=== PATIENT | female | born 1960 | race Caucasian/White ===

== ENCOUNTER → 2017-01-12 | Outpatient (REF) | payer OTHER | LOC: M LAB REF 17:06 | PROVIDERS: ATTEND Internal Medicine | DX: M25.569 Pain in unspecified knee (principal) ==

== ENCOUNTER → 2017-10-20 | Outpatient (REF) | payer OTHER ==
[2017-10-22 14:18] LABS: HPV HYBRID CAPTURE II Negative (Negative)
== END ==
LOC: M LAB REF 17:58
DX: Z12.4 Encounter for screening for malignant neoplasm of cervix (principal)

== ENCOUNTER → 2017-11-19 | Outpatient (REF) | payer OTHER ==
[2017-11-19 18:40] LABS: FERRITIN 67 NG/ML (8-252); IRON (FE) 79 UG/DL (50-170); PERCENT SATURATION 24.6 % (13.2-45.0); TOTAL IRON BINDING CAPACITY 321 UG/DL (250-450)
== END ==
LOC: M LAB REF 17:22
DX: D64.9 Anemia, unspecified (principal)

== ENCOUNTER → 2017-11-26 | Outpatient (REF) | payer OTHER ==
[2017-12-02 14:18] LABS: HPV HYBRID CAPTURE II Negative (Negative)
== END ==
LOC: M LAB REF 09:11
DX: Z12.4 Encounter for screening for malignant neoplasm of cervix (principal)
CPT/HCPCS: G0123

== ENCOUNTER → 2018-01-12 | Outpatient (REF) | payer OTHER ==
[2018-01-13 11:01] LABS: TROPONIN I < 0.02 NG/ML (< 0.10)
== END ==
LOC: M LAB REF 10:31
DX: R94.31 Abnormal electrocardiogram [ECG] [EKG] (principal)
CPT/HCPCS: 84484

== ENCOUNTER → 2018-01-15 | Outpatient (REF) | payer OTHER ==
[2018-01-19 10:17] LABS: ALDOSTERONE 1.5 ng/dL (0.0-30.0)
== END ==
LOC: M LAB REF 16:29
DX: R73.01 Impaired fasting glucose (principal); I10 Essential (primary) hypertension

== ENCOUNTER → 2018-01-21 | Outpatient (REF) | payer OTHER | LOC: M LAB REF 11:55 | DX: I10 Essential (primary) hypertension (principal) ==

== ENCOUNTER 2018-01-22 15:33 | Emergency (ER) | payer BC, OTHER ==
[2018-01-22 16:39] LABS: HEMATOCRIT 45.6 % (36.0-47.0); HEMOGLOBIN 16.1 g/dl (12.0-15.5); MEAN CORPUSCULAR HEMOGLOBIN 30.3 pg (27.0-33.0); MEAN CORPUSCULAR HGB CONC 35.3 g/dl (32.0-36.5); MEAN CORPUSCULAR VOLUME 85.9 fl (80.0-96.0); PLATELET COUNT, AUTOMATED 274 10^3/uL (150-450); RED BLOOD COUNT 5.31 10^6/uL (4.00-5.40)
[2018-01-22 16:41] LABS: ADD MANUAL DIFFER YES; DIFF SLIDE NUMBER 253; POSITIVE DIFF POS FLAG
[2018-01-22 16:51] LABS: ANION GAP 11 MEQ/L (8-16); BLOOD UREA NITROGEN 12 MG/DL (7-18); CALCIUM LEVEL 9.8 MG/DL (8.5-10.1); CARBON DIOXIDE LEVEL 23 MEQ/L (21-32); CHLORIDE LEVEL 105 MEQ/L (98-107); CPK CREATINE PHOSPHOKINASE 109 U/L (26-192); CREATININE FOR GFR 1.18 MG/DL (0.55-1.30); GLOMERULAR FILTRATION RATE 50.3 (>51); GLUCOSE, FASTING 107 MG/DL (70-100); POTASSIUM SERUM 3.8 MEQ/L (3.5-5.1); SODIUM LEVEL 139 MEQ/L (136-145); TROPONIN I < 0.02 NG/ML (< 0.10)
[2018-01-22 17:02] LABS: FREE T4 1.16 NG/DL (0.76-1.46); MB/CK RELATIVE INDEX 1.83 (< OR =4)
[2018-01-22 17:13] LABS: ATYPICAL LYMPH 6 % (0-5); EOSINOPHILS 1 % (0-5); LYMPHOCYTES 31 % (16-52); MONOCYTES 14 % (0-8); NEUTROPHILS 48 % (35-75); PLATELET ESTIMATE NORMAL (NORMAL)
[2018-01-22] MEDS ORDERED: ISOVUE-370 76% 100ML VIAL (Q9967) As Ordered (17:19)
[2018-01-22 23:27] LABS: TROPONIN I < 0.02 NG/ML (< 0.10)
[2018-01-22 23:28] LABS: CK-MB VALUE MASS 1.9 NG/ML (<3.6); CPK CREATINE PHOSPHOKINASE 120 U/L (26-192); MB/CK RELATIVE INDEX 1.58 (< OR =4)
== END 2018-01-23 00:06 | disposition home or self-care (01) ==
LOC: M ED 01-23 00:06
DX: R07.89 Other chest pain (principal); I10 Essential (primary) hypertension; J45.909 Unspecified asthma, uncomplicated; Z88.8 Allergy status to other drugs, medicaments and biological substances
CPT/HCPCS: Q9967

== ENCOUNTER → 2019-01-26 | Outpatient (REF) | payer OTHER | LOC: M LAB REF 13:25 | PROVIDERS: ATTEND Advanced Practice Midwife | DX: R10.30 Lower abdominal pain, unspecified (principal) ==

== ENCOUNTER → 2019-07-28 | Outpatient (REF) | payer OTHER | LOC: M SFHCWAGY 13:18 | PROVIDERS: ATTEND Specialist | DX: Z12.4 Encounter for screening for malignant neoplasm of cervix (principal) | CPT/HCPCS: 87624; G0123 ==

== ENCOUNTER → 2019-08-16 | Outpatient (CLI) | payer BC, OTHER ==
--- NOTE | 2019-08-16 17:04 | REPMRS ---
Patient History The patient states she had a clinical breast exam in 2018. Family history of breast cancer at age 40 in maternal aunt, breast cancer at age 60 in maternal aunt, ovarian cancer at age 60 in mother, unknown cancer at age 83 in father. Took hormonal contraceptives for 10 years. Digital Woman Screen Mammo: August 16, 2019 - Exam #: [id number] Bilateral CC and MLO view(s) were taken. Technologist: Erna Pace, Technologist Prior study comparison: June 30, 2013, bilateral bilat screen digital mammo[facility] June 01, 2012, bilateral bilat screen digital mammo, [facility] at [facility]). January 14, 2011, bilateral screening mammogram, performed at [facility] ([facility]). FINDINGS: The breast tissue is heterogeneously dense. This may lower the sensitivity of mammography. There is a moderate amount of heterogeneously dense fibroglandular tissue which is fairly symmetric. There is no interval development of dominant mass, architectural distortion, or grouped microcalcification typical of malignancy. There has been no change in the appearance of the mammogram from the prior studies. 3-D tomosynthesis shows no additional findings. Assessment: BI-RADS/ACR category 1 mammogram. Negative Mammogram. Recommendation Routine screening mammogram of both breasts in 1 year (for women over age 40). This patient's Lifetime Breast Cancer RIsk is estimated at 11.1 %. This mammogram was interpreted with the aid of an FDA-approved computer-aided dectection system. Electronically Signed By: Jose Barreto MD 08/16/19 0230
== END ==
LOC: M WHC 16:14
PROVIDERS: ATTEND Specialist
DX: Z12.31 Encounter for screening mammogram for malignant neoplasm of breast (principal); Z80.3 Family history of malignant neoplasm of breast; Z80.41 Family history of malignant neoplasm of ovary

== ENCOUNTER → 2020-03-20 | Outpatient (REF) | payer OTHER ==
[2020-04-30 08:29] LABS: ANTINUCLEAR ANTIBODIES DIRECT See Separate Report; CYCLIC CITRULLINATED PEPTIDE See Separate Report UNITS
== END ==
LOC: M LAB REF 10:49
PROVIDERS: ATTEND Internal Medicine
DX: M25.569 Pain in unspecified knee (principal)

== ENCOUNTER → 2020-09-07 | Outpatient (REF) | payer OTHER | LOC: M LAB REF 16:11 | PROVIDERS: ATTEND Internal Medicine | DX: R59.1 Generalized enlarged lymph nodes (principal) ==

== ENCOUNTER → 2020-12-13 | Outpatient (CLI) | payer BC, OTHER ==
[~2020-12-13] MED LIST: METHACHOLINE KIT (J7674) INH ONE
--- NOTE | 2020-12-13 08:21 | PFTRPT ---
Height: 62.00 Inches Weight: 160.00 Lbs BSA: 1.74 Diagnosis: R06.00 DATE: 12/13/2020 ORDERED BY: ANNIE Hanson QUALITY: Study of excellent technical quality. PROCEDURE: Under protocol, methacholine was administered. Even after a maximal dose of 25 mg or 188.875 CDUs, no provocation dose ever achieved. IMPRESSION: Negative methacholine challenge study. MTDD
== END ==
LOC: M CARPUL 07:26
PROVIDERS: ATTEND Physician Assistant
DX: R06.00 Dyspnea, unspecified (principal)
CPT/HCPCS: 94070; J7674

== ENCOUNTER → 2021-03-28 | Outpatient (REF) | payer BC, OTHER | LOC: M SFHCWAGY 13:18 | PROVIDERS: ATTEND Specialist | DX: N88.8 Other specified noninflammatory disorders of cervix uteri (principal) ==

== ENCOUNTER → 2022-05-23 | Outpatient (REF) | payer BC, OTHER | LOC: M SFHCWAGY 12:46 | PROVIDERS: ATTEND Specialist | DX: Z12.4 Encounter for screening for malignant neoplasm of cervix (principal); N95.2 Postmenopausal atrophic vaginitis | CPT/HCPCS: 87624; G0123 ==

== ENCOUNTER → 2022-05-23 | Outpatient (CLI) | payer BC, OTHER | LOC: M WHC 10:25 | PROVIDERS: ATTEND Specialist | DX: Z12.31 Encounter for screening mammogram for malignant neoplasm of breast (principal) ==

== ENCOUNTER → 2023-05-25 | Outpatient (REF) | payer OTHER, BC | LOC: M SFHCWAGY 15:34 | PROVIDERS: ATTEND Specialist | DX: Z12.4 Encounter for screening for malignant neoplasm of cervix (principal) | CPT/HCPCS: 87624; G0123 ==

== ENCOUNTER → 2023-06-19 | Outpatient (CLI) | payer BC, OTHER | LOC: M WUC 15:28 | PROVIDERS: ATTEND Physician Assistant | DX: J20.9 Acute bronchitis, unspecified (principal); J01.10 Acute frontal sinusitis, unspecified ==

== ENCOUNTER → 2023-07-22 | Outpatient (REF) | payer OTHER ==
[2023-07-22 17:23] LABS: IRON (FE) 63 UG/DL (50-170); PERCENT SATURATION 19.5 % (13.2-45.0); TOTAL IRON BINDING CAPACITY 323 UG/DL (250-425)
[2023-07-22 17:26] LABS: FERRITIN 54.8 NG/ML (7.3-270.7)
[2023-07-22 17:56] LABS: HIV 1&2 SCREEN NEGATIVE (NEGATIVE)
[2023-07-22 18:04] LABS: HEPATITIS C VIRUS ABY INDEX 0.09 INDEX (<0.8)
[2023-07-22 18:05] LABS: HEPATITIS B CORE ANTIBODY IGM NEGATIVE (NEGATIVE)
== END ==
LOC: M LAB REF 16:16
PROVIDERS: ATTEND Nurse Practitioner Family
DX: K75.81 Nonalcoholic steatohepatitis (NASH) (principal)

== ENCOUNTER → 2024-01-22 | Outpatient (CLI) | payer BC, OTHER ==
[2024-01-22 13:55] LABS: ALBUMIN 4.3 G/DL (3.2-5.2); BILIRUBIN,DIRECT 0.3 MG/DL (<0.4); BILIRUBIN,TOTAL 0.7 MG/DL (0.3-1.2); TOTAL PROTEIN 7.2 G/DL (5.7-8.2)
[2024-01-23 05:42] LABS: T P ELECTROPHORESIS SO 7.4 g/dL (6.1-8.1)
[2024-01-25 12:41] LABS: ALBUMIN SPEP 4.4 g/dL (3.8-4.8); ALPHA-1-GLOBULINS SO 0.3 g/dL (0.2-0.3); ALPHA-2-GLOBULINS SO 0.6 g/dL (0.5-0.9); BETA 2 GLOBULIN 0.4 g/dL (0.2-0.5); BETA-GLOBULIN SO 0.5 g/dL (0.4-0.6); GAMMA GLOBULINS SO 1.3 g/dL (0.8-1.7)
[2024-01-25 12:47] LABS: ALPHA 1 ANTITRYPSIN 136 mg/dL (83-199)
[2024-01-25 13:48] LABS: TISSUE TRANSGLUTAMINASE IgA < 1.0 U/mL (<15.0)
== END ==
LOC: M WUC 11:30
PROVIDERS: ATTEND Nurse Practitioner
DX: R94.5 Abnormal results of liver function studies (principal); R53.83 Other fatigue; Z87.2 Personal history of diseases of the skin and subcutaneous tissue; R14.0 Abdominal distension (gaseous)

== ENCOUNTER → 2024-08-12 | Outpatient (CLI) | payer BC, OTHER ==
[2024-08-12 16:17] LABS: ALBUMIN 4.2 G/DL (3.2-5.2); BILIRUBIN,DIRECT 0.3 MG/DL (<0.4); BILIRUBIN,TOTAL 0.7 MG/DL (0.3-1.2); TOTAL PROTEIN 7.9 G/DL (5.7-8.2)
== END ==
LOC: M WUC 13:07
PROVIDERS: ATTEND Nurse Practitioner
DX: K74.60 Unspecified cirrhosis of liver (principal); K83.1 Obstruction of bile duct; K21.9 Gastro-esophageal reflux disease without esophagitis; Z86.0100 Personal history of colon polyps, unspecified

== ENCOUNTER → 2024-10-03 | Outpatient (REF) | payer OTHER, BC | LOC: M LAB REF 12:03 | PROVIDERS: ATTEND Internal Medicine | DX: M25.569 Pain in unspecified knee (principal) ==

== ENCOUNTER → 2024-10-04 | Outpatient (CLI) | payer BC, OTHER | LOC: M WUC 10:32 | PROVIDERS: ATTEND Internal Medicine | DX: M25.562 Pain in left knee (principal); M79.89 Other specified soft tissue disorders ==

== ENCOUNTER → 2024-10-26 | Outpatient (CLI) | payer BC, OTHER ==
[2024-10-26 12:11] LABS: HEMATOCRIT 42.2 % (36.0-47.0); HEMOGLOBIN 14.4 g/dl (12.0-15.5); MEAN CORPUSCULAR HGB CONC 34.1 g/dl (32.0-36.5); MEAN CORPUSCULAR VOLUME 90.9 fl (80.0-96.0); PLATELET COUNT, AUTOMATED 117 10^3/uL (150-450); RED BLOOD COUNT 4.64 10^6/uL (4.00-5.40); WHITE BLOOD COUNT 7.4 10^3/uL (4.0-10.0)
[2024-10-26 12:23] LABS: PROTHROMBIN TIME 13.5 SECONDS (12.5-14.5)
[2024-10-26 12:24] LABS: ALBUMIN 3.9 G/DL (3.2-5.2); ALKALINE PHOSPHATASE 99 U/L (35-104); ALT/SGPT 35 U/L (7.0-40); AST/SGOT 41 U/L (<34); BILIRUBIN,TOTAL 0.8 MG/DL (0.3-1.2); BLOOD UREA NITROGEN 9 MG/DL (9-23); CALCIUM LEVEL 9.2 MG/DL (8.3-10.6); CARBON DIOXIDE LEVEL 25 MMOL/L (20-31); CHLORIDE LEVEL 107 MMOL/L (98-107); CREATININE FOR GFR 0.67 MG/DL (0.55-1.30); GLOMERULAR FILTRATION RATE > 60.0 (>45); GLUCOSE, FASTING 118 MG/DL (74-106); SODIUM LEVEL 141 MMOL/L (136-145); TOTAL PROTEIN 7.3 G/DL (5.7-8.2)
== END ==
LOC: M WUC 10:12
PROVIDERS: ATTEND Nurse Practitioner
DX: K74.60 Unspecified cirrhosis of liver (principal); K83.1 Obstruction of bile duct; K21.9 Gastro-esophageal reflux disease without esophagitis

== ENCOUNTER → 2024-11-16 | Outpatient (CLI) | payer BC | LOC: M WHC 09:30 | PROVIDERS: ATTEND Specialist | DX: Z12.31 Encounter for screening mammogram for malignant neoplasm of breast (principal); R92.333 Mammographic heterogeneous density, bilateral breasts ==

== ENCOUNTER → 2024-11-16 | Outpatient (REF) | payer BC ==
[2024-11-19 16:03] LABS: HPV APTIMA Not Detected (Not Detected)
== END ==
LOC: M SFHCWAGY 13:14
PROVIDERS: ATTEND Specialist
DX: Z12.4 Encounter for screening for malignant neoplasm of cervix (principal); N95.2 Postmenopausal atrophic vaginitis
CPT/HCPCS: 87624; G0123

== ENCOUNTER → 2024-11-18 | Outpatient (CLI) | payer BC | LOC: M RAD 06:55 | PROVIDERS: ATTEND Internal Medicine | DX: K74.60 Unspecified cirrhosis of liver (principal); K83.1 Obstruction of bile duct; K21.9 Gastro-esophageal reflux disease without esophagitis; R14.0 Abdominal distension (gaseous); R18.8 Other ascites; K76.0 Fatty (change of) liver, not elsewhere classified ==

== ENCOUNTER → 2025-05-02 | Outpatient (CLI) | payer BC ==
[2025-05-02 12:36] LABS: PLATELET COUNT, AUTOMATED 105 10^3/uL (150-450)
[2025-05-02 12:39] LABS: INR 1.08
[2025-05-02 13:03] LABS: ALT/SGPT 37 U/L (7.0-40); AST/SGOT 71 U/L (<34); CALCIUM LEVEL 8.7 MG/DL (8.3-10.6); CARBON DIOXIDE LEVEL 24 MMOL/L (20-31); CHLORIDE LEVEL 107 MMOL/L (98-107); CREATININE FOR GFR 0.67 MG/DL (0.55-1.30); GLOMERULAR FILTRATION RATE > 90.0 (>45); POTASSIUM SERUM 3.8 MMOL/L (3.5-5.1); SODIUM LEVEL 140 MMOL/L (136-145)
== END ==
LOC: M WUC 09:02
DX: K74.60 Unspecified cirrhosis of liver (principal)

== ENCOUNTER → 2025-07-11 | Outpatient (CLI) | payer BC | LOC: M WHC 09:49 | DX: K74.60 Unspecified cirrhosis of liver (principal); K83.1 Obstruction of bile duct; K21.9 Gastro-esophageal reflux disease without esophagitis; Z86.0101 Personal history of adenomatous and serrated colon polyps; R14.0 Abdominal distension (gaseous); R19.5 Other fecal abnormalities; Z90.49 Acquired absence of other specified parts of digestive tract ==